=== PATIENT | female | born 1960 | race Caucasian/White ===

== ENCOUNTER 2022-01-22 09:27 | Emergency (ER) | payer OTHER ==
[~2022-01-22] VITALS: Ht 162.5 cm; Wt 90.7 kg
[~2022-01-22 09:27] MED LIST: ALBUTEROL0.09 MG/A2 IH; FAMOTIDINE40 MG PO; LEVOFLOXACIN500 MG PO; LORATADINE10 M1 PO; MOTRIN800 MG PO; PREDNISONE2.5 MG PO; PROZAC20 MG PO; SINGULAIR10 MG PO; TRAMADOL HCL50 MG PO; VICODIN ES 7501 TAB PO; VITAMIN D2000 IU PO
[2022-01-22 09:49] LABS: BASO % 0.3 % (0.0-1.0); EOS # 0.1 10*3/uL (0.0-0.4); EOS % 0.9 % (1.0-4.0); HEMATOCRIT 44.2 % (37.0-47.0); LYMPH # 1.2 10*3/uL (1.3-4.4); LYMPH % 15.9 % (27.0-41.0); MEAN CELL VOLUME 96.3 fl (81.0-99.0); MEAN CORPUSCULAR HGB 32.5 pg (27.0-31.0); MEAN CORPUSCULAR HGB CONC 33.7 g/dl (33.0-37.0); MEAN PLATELET VOLUME 10.8 fl (9.6-12.3); MONO # 0.5 10*3/uL (0.1-1.0); NEUT # 5.8 10*3/uL (2.3-7.9); NEUT % 75.5 % (47.0-73.0); PLATELET COUNT AUTOMATED 187 10*3/uL (130-400); RED BLOOD COUNT 4.59 10*6/uL (4.10-5.10); RED CELL DISTRI WIDTH 13.9 % (0-14.5); WHITE BLOOD COUNT 7.7 10*3/uL (4.8-10.8)
[2022-01-22 09:58] LABS: ACT PARTIAL THROMBO TIME 28.8 SECONDS (20.0-32.1); INTERNATIONAL NORM RATIO 0.9 (2.0-3.5)
[2022-01-22 10:03] LABS: ALKALINE PHOSPHATASE 209 U/L (45-117); BUN 14 mg/dl (7-24); CHLORIDE 110 mmol/L (98-107); CREATININE 1.05 mg/dL (0.55-1.02); POTASSIUM 4.1 mmol/L (3.5-5.1); SGOT/AST 174 IU/L (3-35); SGPT/ALT 112 U/L (12-78); SODIUM 138 mmol/L (136-145); TOTAL PROTEIN 7.1 gm/dL (6.4-8.2)
[2022-01-22] MEDS ORDERED: METHOCARBAMOL500 M1 PO (12:21)
== END 2022-01-22 12:41 | disposition home or self-care (01) ==
LOC: ED 09:27
PROVIDERS: Emergency Medicine
DX: M54.12 Radiculopathy, cervical region (principal); F17.200 Nicotine dependence, unspecified, uncomplicated; Z88.8 Allergy status to other drugs, medicaments and biological substances; Z88.0 Allergy status to penicillin; Z79.899 Other long term (current) drug therapy; Z90.710 Acquired absence of both cervix and uterus; Z90.49 Acquired absence of other specified parts of digestive tract; Z98.51 Tubal ligation status

== ENCOUNTER 2022-04-25 08:03 | Inpatient (IN) | payer OTHER ==
[2022-04-25] VITALS (21 sets, daily range): BP systolic 92–131; BP diastolic 46–79
[~2022-04-25] VITALS: Ht 165.1 cm; Wt 88.0 kg
[~2022-04-25 08:03] MED LIST changes: +METHOCARBAMOL500 M1 PO
[2022-04-25 08:28] LABS: BASO % 0.1 % (0.0-1.0); EOS % 0.1 % (1.0-4.0); HEMATOCRIT 40.9 % (37.0-47.0); LYMPH # 0.7 10*3/uL (1.3-4.4); LYMPH % 9.5 % (27.0-41.0); MEAN CELL VOLUME 96.2 fl (81.0-99.0); MEAN CORPUSCULAR HGB 32.2 pg (27.0-31.0); MEAN CORPUSCULAR HGB CONC 33.5 g/dl (33.0-37.0); MEAN PLATELET VOLUME 9.6 fl (9.6-12.3); MONO # 0.5 10*3/uL (0.1-1.0); MONO % 6.9 % (3.0-9.0); NEUT # 6.3 10*3/uL (2.3-7.9); NEUT % 82.1 % (47.0-73.0); PLATELET COUNT AUTOMATED 295 10*3/uL (130-400); RED BLOOD COUNT 4.25 10*6/uL (4.10-5.10); RED CELL DISTRI WIDTH 12.8 % (0-14.5); WHITE BLOOD COUNT 7.7 10*3/uL (4.8-10.8)
[2022-04-25 08:39] LABS: ACT PARTIAL THROMBO TIME 31.1 SECONDS (20.0-32.1); INTERNATIONAL NORM RATIO 0.9 (2.0-3.5)
[2022-04-25 08:45] LABS: ALKALINE PHOSPHATASE 131 U/L (45-117); BUN 17 mg/dl (7-24); CHLORIDE 99 mmol/L (98-107); CREATININE 1.05 mg/dL (0.55-1.02); SGOT/AST 349 IU/L (3-35); SGPT/ALT 217 U/L (12-78); SODIUM 128 mmol/L (136-145); TOTAL PROTEIN 7.2 gm/dL (6.4-8.2)
[2022-04-25 09:00] LABS: CPK 1562 U/L (26-192)
[2022-04-25 09:29] LABS: ABG BASE EXCESS -15.7 mmol/L (-2.0-2.0); ARTERIAL BLOOD GAS PH 7.193 (7.35-7.45)
[2022-04-25 09:52] LABS: BILIRUBIN Negative (Negative); BLOOD 2+ (Negative); CLARITY Clear (Clear); COLOR Yellow (Yellow); GLUCOSE Negative (Negative); KETONE Negative (Negative); LEUKO ESTERASE Negative (Negative); NITRITE Negative (Negative); UROBILINOGEN 0.2 E.U./dl (0.0-1.0)
[2022-04-25 10:01] LABS: URINE AMPHETAMINES < 1000 (1000ng/ml); URINE BARBITURATES < 200 (200ng/ml); URINE BENZODIAZEPINES < 200 (200ng/ml); URINE CANNABINOIDS (THC) < 50 (50ng/ml); URINE COCAINE < 300 (300ng/ml); URINE METHADONE < 300 (300ng/ml); URINE OPIATES < 300 (300ng/ml)
[2022-04-25 10:04] LABS: URINE PHENCYCLIDINE < 25 (25ng/ml)
[2022-04-25 10:08] LABS: BACTERIA 1+
[2022-04-25 10:09] LABS: FINE GRANULAR CAST 16-20
[2022-04-25 15:36] LABS: ARTERIAL BLOOD GAS PH 7.343 (7.35-7.45); ARTERIAL BLOOD GAS PO2 74.1 (80-90)
[2022-04-25 15:40] LABS: ABG BASE EXCESS -10.1 mmol/L (-2.0-2.0)
[2022-04-25 17:28] LABS: BUN 13 mg/dl (7-24); CHLORIDE 114 mmol/L (98-107); CREATININE 0.63 mg/dL (0.55-1.02)
[2022-04-25 17:44] LABS: POTASSIUM 4.2 mmol/L (3.5-5.1)
[2022-04-25 17:46] LABS: SODIUM 141 mmol/L (136-145)
[2022-04-25 23:28] LABS: BUN 10 mg/dl (7-24); CHLORIDE 115 mmol/L (98-107); CREATININE 0.81 mg/dL (0.55-1.02); POTASSIUM 4.2 mmol/L (3.5-5.1); SODIUM 142 mmol/L (136-145)
[2022-04-26] VITALS (10 sets, daily range): BP systolic 112–156; BP diastolic 53–72
[2022-04-26 04:21] LABS: BASO % 0.1 % (0.0-1.0); EOS % 0.1 % (1.0-4.0); HEMATOCRIT 35.5 % (37.0-47.0); LYMPH # 2.8 10*3/uL (1.3-4.4); MEAN CELL VOLUME 97.5 fl (81.0-99.0); MEAN CORPUSCULAR HGB CONC 33.8 g/dl (33.0-37.0); MEAN PLATELET VOLUME 10.4 fl (9.6-12.3); MONO # 0.5 10*3/uL (0.1-1.0); NEUT # 3.8 10*3/uL (2.3-7.9); NEUT % 53.5 % (47.0-73.0); PLATELET COUNT AUTOMATED 240 10*3/uL (130-400); RED BLOOD COUNT 3.64 10*6/uL (4.10-5.10); WHITE BLOOD COUNT 7.2 10*3/uL (4.8-10.8)
[2022-04-26 04:39] LABS: ALKALINE PHOSPHATASE 101 U/L (45-117); BUN 9 mg/dl (7-24); CHLORIDE 114 mmol/L (98-107); CHOLESTEROL 179 mg/dL (<200); CREATININE 0.77 mg/dL (0.55-1.02); POTASSIUM 4.1 mmol/L (3.5-5.1); SGOT/AST 73 IU/L (3-35); SGPT/ALT 124 U/L (12-78); SODIUM 143 mmol/L (136-145); TOTAL PROTEIN 5.8 gm/dL (6.4-8.2)
[2022-04-26 04:48] LABS: FREE T4 0.79 ng/dl (0.76-1.46); LDL CHOLESTEROL 65 mg/dL (9-159); TRIGLYCERIDES 263 mg/dl (<150)
[2022-04-26 04:56] LABS: CPK 640 U/L (26-192)
[2022-04-26 06:40] LABS: VITAMIN D, 25-HYDROXY 18.8 ng/mL (30-100)
[2022-04-26 08:59] LABS: BUN 8 mg/dl (7-24); CHLORIDE 114 mmol/L (98-107); CREATININE 0.79 mg/dL (0.55-1.02); SODIUM 143 mmol/L (136-145)
[2022-04-26 10:23] LABS: ABG BASE EXCESS -4.2 mmol/L (-2.0-2.0); ARTERIAL BLOOD GAS PH 7.398 (7.35-7.45); ARTERIAL BLOOD GAS PO2 86.7 (80-90)
[2022-04-26 12:23] LABS: BUN 7 mg/dl (7-24); CHLORIDE 113 mmol/L (98-107); CREATININE 1.06 mg/dL (0.55-1.02); POTASSIUM 3.9 mmol/L (3.5-5.1); SODIUM 142 mmol/L (136-145)
[2022-04-26] MEDS ORDERED: COREG6.25 MG PO (14:46)
[2022-04-26] MEDS ORDERED: LIPITOR40 MG PO (14:46)
[2022-04-26] MEDS ORDERED: BUSPIRONE HCL15 MG PO (14:47)
[2022-04-26] MEDS ORDERED: ARICEPT23MG PO (14:47)
[2022-04-26] MEDS ORDERED: AMITRIPTYLINE150 M1 PO (14:48)
[2022-04-26] MEDS ORDERED: WELLBUTRIN SR100 MG PO (14:49)
[2022-04-26] MEDS ORDERED: VITAMIN D350 MCG PO (14:50)
[2022-04-26] MEDS ORDERED: MIRALAX POWDER17 G1 PO (14:51)
[2022-04-26] MEDS ORDERED: NORVASC10 MG PO (14:52)
[2022-04-26] MEDS ORDERED: OMEPRAZOLE40 MG PO (14:53)
[2022-04-26] MEDS ORDERED: ZESTRIL40 MG PO (14:53)
[2022-04-26] MEDS ORDERED: PEPCID40 MG PO (14:56)
[2022-04-27] VITALS: BP 115/80
[2022-04-27 06:26] LABS: BASO % 0.2 % (0.0-1.0); EOS # 0.1 10*3/uL (0.0-0.4); EOS % 1.5 % (1.0-4.0); HEMATOCRIT 36.1 % (37.0-47.0); LYMPH % 56.6 % (27.0-41.0); MEAN CELL VOLUME 97.3 fl (81.0-99.0); MEAN CORPUSCULAR HGB 32.6 pg (27.0-31.0); MEAN CORPUSCULAR HGB CONC 33.5 g/dl (33.0-37.0); MEAN PLATELET VOLUME 10.4 fl (9.6-12.3); MONO # 0.4 10*3/uL (0.1-1.0); MONO % 6.7 % (3.0-9.0); NEUT # 1.9 10*3/uL (2.3-7.9); NEUT % 34.8 % (47.0-73.0); PLATELET COUNT AUTOMATED 241 10*3/uL (130-400); RED BLOOD COUNT 3.71 10*6/uL (4.10-5.10); RED CELL DISTRI WIDTH 13.7 % (0-14.5); WHITE BLOOD COUNT 5.3 10*3/uL (4.8-10.8)
[2022-04-27 06:52] LABS: ALKALINE PHOSPHATASE 93 U/L (45-117); BUN 6 mg/dl (7-24); CHLORIDE 113 mmol/L (98-107); CREATININE 0.89 mg/dL (0.55-1.02); POTASSIUM 3.9 mmol/L (3.5-5.1); SGOT/AST 28 IU/L (3-35); SGPT/ALT 91 U/L (12-78); SODIUM 143 mmol/L (136-145)
[2022-04-27 07:30] LABS: CPK 230 U/L (26-192)
[2022-04-27 08:00] VITALS: BP 140/89
[2022-04-27 12:00] VITALS: BP 138/93
[2022-04-27] MEDS ORDERED: VITAMIN B-1100 M1 PO (15:21)
[2022-04-27 16:00] VITALS: BP 124/77
[2022-04-28 06:07] LABS: HBSAG Negative (Negative); HEP B CORE AB, IGM Negative (Negative); HEPATITIS C ANTIBODY <0.1 (0.0-0.9)
== END 2022-04-27 17:15 | disposition home or self-care (01) | DRG 640 ==
LOC: ED 08:03 → EDHOLD 15:17 → 4E 15:17 → EDHOLD 20:29 → 4E 04-26 12:34
PROVIDERS: Emergency Medicine; Internal Medicine; Student in an Organized Health Care Education/Training Program; ADMIT Internal Medicine; ATTEND Internal Medicine
DX: E87.1 Hypo-osmolality and hyponatremia (principal); N17.0 Acute kidney failure with tubular necrosis; I51.81 Takotsubo syndrome; F10.920 Alcohol use, unspecified with intoxication, uncomplicated; E87.20 Acidosis, unspecified; T68.XXXA Hypothermia, initial encounter; J45.909 Unspecified asthma, uncomplicated; T79.6XXA Traumatic ischemia of muscle, initial encounter; R74.01 Elevation of levels of liver transaminase levels; E83.41 Hypermagnesemia; F17.210 Nicotine dependence, cigarettes, uncomplicated; J43.2 Centrilobular emphysema; I10 Essential (primary) hypertension; M54.12 Radiculopathy, cervical region; Z88.0 Allergy status to penicillin; Z88.8 Allergy status to other drugs, medicaments and biological substances; Z90.49 Acquired absence of other specified parts of digestive tract; Z90.710 Acquired absence of both cervix and uterus; Z98.51 Tubal ligation status; Z83.3 Family history of diabetes mellitus; Z82.49 Family history of ischemic heart disease and other diseases of the circulatory system; Z82.3 Family history of stroke; Z91.040 Latex allergy status; Z71.6 Tobacco abuse counseling; X58.XXXA Exposure to other specified factors, initial encounter; Y93.89 Activity, other specified; Y92.89 Other specified places as the place of occurrence of the external cause; Y99.8 Other external cause status

== ENCOUNTER → 2022-10-09 | Outpatient (CLI) | payer OTHER ==
[~2022-10-09] MED LIST changes: +AMITRIPTYLINE150 M1 PO; +ARICEPT23MG PO; +BUSPIRONE HCL15 MG PO; +COREG6.25 MG PO; +LIPITOR40 MG PO; +MIRALAX POWDER17 G1 PO; +NORVASC10 MG PO; +OMEPRAZOLE40 MG PO; +PEPCID40 MG PO; +VITAMIN B-1100 M1 PO; +VITAMIN D350 MCG PO; +WELLBUTRIN SR100 MG PO; +ZESTRIL40 MG PO
== END | disposition home or self-care (01) ==
LOC: RAD 07:03
PROVIDERS: ATTEND Nurse Practitioner Family
DX: R05.1 Acute cough (principal); M47.814 Spondylosis without myelopathy or radiculopathy, thoracic region

== ENCOUNTER → 2022-12-05 | Outpatient (CLI) | payer OTHER | END | disposition home or self-care (01) | LOC: RAD 07:26 | PROVIDERS: ATTEND Nurse Practitioner Family | DX: M17.0 Bilateral primary osteoarthritis of knee (principal); M16.0 Bilateral primary osteoarthritis of hip; M47.817 Spondylosis without myelopathy or radiculopathy, lumbosacral region ==

== ENCOUNTER → 2023-02-27 | Outpatient (CLI) | payer OTHER | END | disposition home or self-care (01) | LOC: MRI 01:10 | PROVIDERS: ATTEND Orthopaedic Surgery | DX: S43.431A Superior glenoid labrum lesion of right shoulder, initial encounter (principal); M70.61 Trochanteric bursitis, right hip; M76.01 Gluteal tendinitis, right hip; M51.06 Intervertebral disc disorders with myelopathy, lumbar region; R60.9 Edema, unspecified; M51.16 Intervertebral disc disorders with radiculopathy, lumbar region; M51.27 Other intervertebral disc displacement, lumbosacral region; M16.11 Unilateral primary osteoarthritis, right hip; X58.XXXA Exposure to other specified factors, initial encounter; Y93.89 Activity, other specified; Y92.89 Other specified places as the place of occurrence of the external cause; Y99.8 Other external cause status ==

== ENCOUNTER → 2024-10-19 | Day surgery (SDC) | payer OTHER ==
[~2024-10-19] VITALS: Ht 165.1 cm; Wt 93.0 kg
[~2024-10-19] MED LIST changes: +Esmolol Hydrochloride 100 MG/10 ML VIAL IV ONE; +Lactated Ringer's Solution 1,000 ML IV ONE; +Lactated Ringer's Solution 1,000 ML IV SCH; +Lidocaine Hydrochloride 2% 5 ML SDV IV ONE; +PROPOFOL 200 MG/20 ML VIAL IV ONE
[2024-10-19 07:15] VITALS: BP 138/85
[2024-10-19 08:55] VITALS: BP 168/92
[2024-10-19 09:10] VITALS: BP 146/78
[2024-10-19 09:25] VITALS: BP 156/78
== END | disposition home or self-care (01) ==
LOC: SDC 10-16 08:00
PROVIDERS: ATTEND Surgery
DX: Z12.11 Encounter for screening for malignant neoplasm of colon (principal); K63.5 Polyp of colon; K62.1 Rectal polyp; J44.9 Chronic obstructive pulmonary disease, unspecified; K21.9 Gastro-esophageal reflux disease without esophagitis; I10 Essential (primary) hypertension; F41.9 Anxiety disorder, unspecified; Z86.0100 Personal history of colon polyps, unspecified; Z90.710 Acquired absence of both cervix and uterus; F17.210 Nicotine dependence, cigarettes, uncomplicated; F32.A Depression, unspecified; Z79.899 Other long term (current) drug therapy